=== PATIENT | female | born 1990 | race African-American/Black ===

== ENCOUNTER 2020-12-01 16:17 | Emergency (ER) | payer MEDICAID, MEDICARE ==
[~2020-12-01] VITALS: Ht 165.1 cm; Wt 67.0 kg
[2020-12-01 16:40] VITALS: BP 135/90
[2020-12-01 19:07] LABS: BASOPHILS % 0.9 % (0.0-2.0); EOSINOPHILS % 2.2 % (0.0-5.0); HEMATOCRIT. 37.9 % (36.0-48.0); HEMOGLOBIN. 12.6 g/dL (12.0-16.0); MEAN CORPUSCULAR HEMOGLOBIN 27.3 pg (28.0-32.0); MEAN CORPUSCULAR VOLUME 81.7 fL (81.0-99.0); MEAN PLATELET VOLUME 8.8 fl (7.4-10.4); MONOCYTES % 7.8 % (2.0-8.0); NEUTROPHILS % 28.1 % (40.0-76.0); PLATELET 319 x1000/uL (130-400); RED BLOOD CELL COUNT 4.63 mill/uL (4.2-5.4); RED CELL DISTRIBUTION WIDTH 13.5 % (11.6-14.6)
[2020-12-01 19:12] LABS: CHLORIDE 108 mEq/L (98-107)
[2020-12-01 19:14] LABS: INR 1.1; PROTHROMBIN TIME 11.3 sec (9.6-11.0)
[2020-12-01] MEDS ORDERED: ACETAMINOPHEN 325MG TABLET PO ONE (19:30)
[2020-12-01] MEDS ORDERED: DIPH25CA83 MT (20:04)
== END 2020-12-01 20:18 | disposition home or self-care (01) ==
LOC: ER 16:17
DX: T78.49XA Other allergy, initial encounter (principal); E05.90 Thyrotoxicosis, unspecified without thyrotoxic crisis or storm; R21 Rash and other nonspecific skin eruption; E03.9 Hypothyroidism, unspecified; F31.9 Bipolar disorder, unspecified; F15.10 Other stimulant abuse, uncomplicated; F17.200 Nicotine dependence, unspecified, uncomplicated; Z98.890 Other specified postprocedural states; X58.XXXA Exposure to other specified factors, initial encounter
CPT/HCPCS: 36415; 80048; 84443; 85025; 99283

== ENCOUNTER 2022-06-29 10:38 | Emergency (ER) | payer MEDICAID ==
[~2022-06-29] VITALS: Ht 154.9 cm; Wt 90.0 kg
[~2022-06-29 10:38] MED LIST: DIPH25CA83 MT
[2022-06-29 10:53] VITALS: BP 108/82
[2022-06-29] MEDS ORDERED: VISCOUS LIDOCAINE 2% 15 ML UDC PO STA (13:44)
[2022-06-29] MEDS ORDERED: MAGNESIUM/ALUMINUM HYDROXIDE/SIMETHICONE 30ML UDC PO STA ×2 (13:44)
[2022-06-29] MEDS ORDERED: ONDANSETRON 4MG ODT PO STA (13:44)
[2022-06-29] MEDS ORDERED: FAMOTIDINE 20MG TABLET PO ONE (13:45)
[2022-06-29 14:47] LABS: BASOPHILS % 0.5 % (0.0-2.0); EOSINOPHILS % 0.7 % (0.0-5.0); HEMATOCRIT. 43.5 % (36.0-48.0); HEMOGLOBIN. 14.6 g/dL (12.0-16.0); LYMPHOCYTES % 20.8 % (20.0-50.0); MEAN CORPUSCULAR HEMOGLOBIN 30.8 pg (28.0-32.0); MONOCYTES % 5.9 % (2.0-8.0); NEUTROPHILS % 72.1 % (40.0-76.0); PLATELET 234 x1000/uL (130-400); RED BLOOD CELL COUNT 4.72 mill/uL (4.2-5.4); RED CELL DISTRIBUTION WIDTH 13.9 % (11.6-14.6)
[2022-06-29 14:55] LABS: CHLORIDE 102 mEq/L (98-107)
[2022-06-29 15:07] LABS: PROTHROMBIN TIME 11.2 sec (9.6-11.0)
[2022-06-29 15:21] LABS: HCG SCREEN NEGATIVE
[2022-06-29] MEDS ORDERED: PROT40 MT (16:08)
[2022-06-29] MEDS ORDERED: DEXT15LI5 MT (16:21)
[2022-06-29 16:33] LABS: CLARITY URINE CLEAR (CLEAR); COLOR URINE YELLOW (YELLOW); KETONES URINE NEGATIVE (NEGATIVE); LEUKOCYTE ESTERASE URINE NEGATIVE (NEGATIVE); NITRITE URINE NEGATIVE (NEGATIVE); OCCULT BLOOD URINE NEGATIVE (NEGATIVE); PH URINE 5.5 (4.5-8.0); PROTEIN URINE NEGATIVE (NEGATIVE); SPECIFIC GRAVITY URINE 1.039 (1.005-1.030)
== END 2022-06-29 16:31 | disposition home or self-care (01) ==
LOC: ER 10:38
DX: K29.70 Gastritis, unspecified, without bleeding (principal); I10 Essential (primary) hypertension; E11.9 Type 2 diabetes mellitus without complications; F31.9 Bipolar disorder, unspecified; E05.90 Thyrotoxicosis, unspecified without thyrotoxic crisis or storm; F15.10 Other stimulant abuse, uncomplicated; F17.210 Nicotine dependence, cigarettes, uncomplicated; Z98.890 Other specified postprocedural states
CPT/HCPCS: 36415; 71045; 76705; 80053; 81003; 81025; 83690; 84703; 85025; 85610; 99285; Q0162